=== PATIENT | male | born 1990 | race American Indian/Alaskan Native ===

== ENCOUNTER 2017-03-25 11:59 | Emergency (ER) | payer OTHER ==
[2017-03-25 12:07] VITALS: BP 137/88
--- NOTE | 2017-03-25 12:23 | Emergency Department Report ---
ED Extremity Problem HPI - General Chief complaint: Extremity Injury, Lower Stated complaint: RT LEG INJURY Time Seen by Provider: 03/25/17 12:20 Source: patient Mode of arrival: Wheelchair Limitations: No Limitations - History of Present Illness Initial comments: PT c/o R knee injury. PT states he was unloading drinks and the drinks and the cooler fell on his R knee. PT states this happened at 0800 and he thought he would be okay. PT states he was given the day off and he went to his dad's house and elevated his leg. PT states when he tried to get up, he could not bend his knee or ambulate. Pt denies other injuries MD Complaint: joint swelling, joint paint -: hour(s) Time: 08:00 (time of injury ) Location: right, knee History of Same: No Severity scale (0 -10): 10 Quality: sharp, constant Consistency: constant Improves with: nothing Worsens with: weight bearing, walking, palpation Associated Symptoms: denies other symptoms - Related Data Previous Rx's Medication Instructions Recorded Last Taken Type Acetaminophen/Codeine [Tylenol #3] 1 tab PO Q6H PRN #12 tab 03/25/17 Unknown Rx Ibuprofen [Motrin] 600 mg PO Q8H PRN #15 tablet 03/25/17 Unknown Rx Allergies Allergy/AdvReac Type Severity Reaction Status Date / Time seafood Allergy Swelling Uncoded 03/25/17 12:02 ED Review of Systems ROS: Stated complaint: RT LEG INJURY Other details as noted in HPI Comment: All other systems reviewed and negative Constitutional: denies: fever Cardiovascular: denies: chest pain Musculoskeletal: as per HPI Skin: other (abrasion to R knee ) Neurological: abnormal gait (due to R knee pain ) ED Past Medical Hx - Past Medical History Previous Medical History?: No - Surgical History Past Surgical History?: No - Social History Smoking Status: Never Smoker Substance Use Type: None - Medications Home Medications: Home Medications Medication Instructions Recorded Confirmed Last Taken Type Acetaminophen/Codeine [Tylenol #3] 1 tab PO Q6H PRN #12 tab 03/25/17 Unknown Rx Ibuprofen [Motrin] 600 mg PO Q8H PRN #15 tablet 03/25/17 Unknown Rx ED Physical Exam - General Limitations: No Limitations General appearance: alert, in no apparent distress - Head Head exam: Present: atraumatic, normocephalic, normal inspection - Eye Eye exam: Present: normal appearance. Absent: conjunctival injection - ENT ENT exam: Present: normal exam, mucous membranes moist, normal external ear exam - Neck Neck exam: Present: normal inspection, full ROM - Respiratory Respiratory exam: Present: normal lung sounds bilaterally. Absent: respiratory distress - Cardiovascular Cardiovascular Exam: Present: regular rate, normal rhythm - Extremities Exam Extremities exam: Present: tenderness, joint swelling (R knee ). Absent: normal inspection, full ROM, calf tenderness - Expanded Lower Extremity Exam Left Hip exam: Present: full ROM Upper Leg exam: Present: normal inspection, full ROM Knee exam: Present: normal inspection, full ROM Lower Leg exam: Present: normal inspection, full ROM Gait: Positive: observed and limited by pain (of r knee ) Right Upper Leg exam: Present: normal inspection. Absent: tenderness Knee exam: Present: tenderness, swelling, abrasion (lateral knee ). Absent: normal inspection, full ROM, laceration, ecchymosis, deformity, crepidus, full knee extension Lower Leg exam: Present: normal inspection, full ROM. Absent: tenderness, swelling Ankle exam: Present: normal inspection, full ROM. Absent: tenderness Foot/Toe exam: Present: normal inspection, full ROM. Absent: tenderness Neuro vascular tendon exam: Present: no vascular compromise. Absent: pulse deficit Gait: Positive: unable to bear weight (on RLE ) - Back Exam Back exam: Present: normal inspection, full ROM - Neurological Exam Neurological exam: Present: alert, oriented X3 - Psychiatric Psychiatric exam: Present: normal affect, normal mood - Skin Skin exam: Present: warm, dry, normal color ED Course Vital Signs 03/25/17 12:03 Temperature 97.9 F Pulse Rate 98 H Respiratory 18 Rate Blood Pressure 137/88 O2 Sat by Pulse 99 Oximetry - Reevaluation(s) Reevaluation #1: 03/25/17 12:22 PT in XR Reevaluation #2: 03/25/17 13:00 PT aware of plan of care. PT has no questions at this time. Reevaluation #3: 03/25/17 14:11 PT states pain has decreased. PT aware of XR results and plan of care. PT has no questions at this time. - Pulse Oximetry Interpretation Digit-Finger Initial Pulse Oximetry Readin Actions Taken: none ED Medical Decision Making - Radiology Data Radiology results: report reviewed XR tib/fib- nap XR knee - no fx, effusion - Differential Diagnosis fracture, contusion, crush injury Critical Care Time: No Critical care attestation.: If time is entered above; I have spent that time in minutes in the direct care of this critically ill patient, excluding procedure time. ED Disposition Clinical Impression: Effusion, right knee, Need for Tdap vaccination Right knee injury Qualifiers: Encounter type: initial encounter Qualified Code(s): S89.91XA - Unspecified injury of right lower leg, initial encounter Abrasion, right knee, initial encounter Qualifiers: Encounter type: initial encounter Qualified Code(s): S80.211A - Abrasion, right knee, initial encounter Disposition: TO HOME OR SELFCARE Is pt being admited?: No Does the pt Need Aspirin: No Condition: Stable Instructions: Knee Sprain (ED), Crutch Instructions (ED), Knee Effusion (ED), RICE Therapy (ED) Additional Instructions: No driving or alcohol after taking Tylenol #3 for pain Call [facility] today to set up your follow up RICE Prescriptions: Acetaminophen/Codeine [Tylenol #3] 1 tab PO Q6H PRN #12 tab PRN Reason: Pain , Severe (7-10) Ibuprofen [Motrin] 600 mg PO Q8H PRN #15 tablet PRN Reason: Pain Referrals: PRIMARY CARE, [Primary Care Provider] - 3-5 Days CONNIE RODARTE MD [Staff Physician] - 3-5 Days Forms: Work/School Release Form(ED) Time of Disposition: 14:13
[2017-03-25] MEDS ORDERED: BOOSTRIX IM ONE (12:55)
[2017-03-25] MEDS ORDERED: TORADOL IM ONE (12:55)
[2017-03-25] MEDS ORDERED: NORCO 5/325 PO ONE (12:55)
--- NOTE | 2017-03-25 13:37 | XRay Report ---
RIGHT KNEE, 2 views: History: Injury, right knee pain. The bony architecture is intact without evidence of fracture or dislocation. There is suggestion of a medium joint effusion on the lateral image. IMPRESSION: Joint effusion. No acute bony injury is detected.
--- NOTE | 2017-03-25 13:38 | XRay Report ---
RIGHT TIBIA/FIBULA: History: Injury, right leg pain AP and lateral views of the right tibia/fibula demonstrate normal mineralization and contours for this patient's age. No destructive changes are noted and the adjacent soft tissues are normal. IMPRESSION: Unremarkable right tibia/fibula.
== END 2017-03-25 14:23 | disposition home or self-care (01) ==
LOC: ED 11:59
DX: S89.91XA Unspecified injury of right lower leg, initial encounter (principal); S80.211A Abrasion, right knee, initial encounter; M25.461 Effusion, right knee; Z91.013 Allergy to seafood; X58.XXXA Exposure to other specified factors, initial encounter; Y93.89 Activity, other specified; Y99.9 Unspecified external cause status; Y92.89 Other specified places as the place of occurrence of the external cause
CPT/HCPCS: 73560; 73590; 90471; 90715; 96372; 99284; J1885

== ENCOUNTER 2021-03-15 21:04 | Emergency (ER) | payer SELFPAY ==
[2021-03-15] MEDS ORDERED: diphenhydrAMINE 25 MG CAP PO ONE (21:36)
[2021-03-15] MEDS ORDERED: ALBUTEROL 2.5 MG/3 ML NEBU IH ONE (21:36)
[2021-03-15] MEDS ORDERED: FAMOTIDINE 20 MG TAB PO ONE (21:36)
[2021-03-15] MEDS ORDERED: IPRATROPIUM 0.02% NEBU 2.5 ML IH ONE (21:36)
[2021-03-15] MEDS ORDERED: methylPREDNISolone Sod Succinate 125 MG/2 ML INJ IM ONE (21:36)
--- NOTE | 2021-03-15 21:43 | Emergency Department Report ---
ED Shortness of Breath HPI - General Stated Complaint: ALLERGIC REACTION,AGUSTÍN Source: patient Mode of arrival: Ambulatory Limitations: No Limitations - History of Present Illness Initial Comments: Patient is a 30-year-old -[place] male with a history of chronic tobacco abuse and asthma who presents to the ED with complaint of acute onset persistent shortness of breath, chest tightness and wheezing after he consumed seafood which he has had previous allergy to. Patient states that he was unaware that the food that he had eaten contained seafood and thereafter he started having shortness of breath and chest tightness. Patient denies itching, rashes, swollen lips or tongue, swollen throat, dizziness, dysphagia, dysphonia, abdominal pain, nausea and vomiting, fever and chills or diarrhea, nasal and sinus congestion or facial swelling. MD Complaint: shortness of breath, cough, "asthma attack", anxiety -: Sudden, hour(s) (1) Radiation: other (chest) Severity: severe Pain Scale: 7 Quality: other (chest tightness) Consistency: constant Improves With: nothing Worsens With: nothing Known History Of: asthma, other (suspected allergic reaction to seafood) Context: allergen exposure (seafood), anxiety Associated Symptoms: cough Treatments Prior to Arrival: none - Related Data Home Oxygen Therapy: No Previous Rx's Medication Instructions Recorded Last Taken Type Acetaminophen/Codeine [Tylenol #3] 1 tab PO Q6H PRN #12 tab 03/25/17 Unknown Rx Ibuprofen [Motrin] 600 mg PO Q8H PRN #15 tablet 03/25/17 Unknown Rx Albuterol Sulfate [Proventil Hfa] 1 - 2 puff IH Q6H PRN #1 hfa.aer.ad 03/16/21 Unknown Rx Famotidine [Pepcid] 20 mg PO BID #30 tablet 03/16/21 Unknown Rx diphenhydrAMINE [Benadryl CAP] 25 mg PO Q6HR PRN #30 capsule 03/16/21 Unknown Rx methylPREDNISolone [Medrol 4MG 4 mg PO DAILY #21 tab.ds.pk 03/16/21 Unknown Rx DOSEPAK (21 tabs)] Allergies Allergy/AdvReac Type Severity Reaction Status Date / Time seafood Allergy Swelling Uncoded 03/25/17 12:02 ED Review of Systems ROS: Stated complaint: ALLERGIC REACTION,AGUSTÍN Other details as noted in HPI Constitutional: denies: chills, fever Eyes: denies: eye pain, eye discharge, vision change ENT: denies: ear pain, throat pain Respiratory: cough, shortness of breath, wheezing Cardiovascular: chest pain (Chest tightness). denies: palpitations Endocrine: no symptoms reported Gastrointestinal: denies: abdominal pain, nausea, diarrhea Genitourinary: denies: urgency, dysuria Musculoskeletal: denies: back pain, joint swelling, arthralgia Skin: denies: rash, lesions Neurological: denies: headache, weakness, paresthesias Psychiatric: anxiety. denies: depression Hematological/Lymphatic: denies: easy bleeding, easy bruising ED Past Medical Hx - Past Medical History Previous Medical History?: Yes Hx Asthma: Yes - Social History Smoking Status: Never Smoker Substance Use Type: None - Medications Home Medications: Home Medications Medication Instructions Recorded Confirmed Last Taken Type Acetaminophen/Codeine [Tylenol #3] 1 tab PO Q6H PRN #12 tab 03/25/17 Unknown Rx Ibuprofen [Motrin] 600 mg PO Q8H PRN #15 tablet 03/25/17 Unknown Rx Albuterol Sulfate [Proventil Hfa] 1 - 2 puff IH Q6H PRN #1 hfa.aer.ad 03/16/21 Unknown Rx Famotidine [Pepcid] 20 mg PO BID #30 tablet 03/16/21 Unknown Rx diphenhydrAMINE [Benadryl CAP] 25 mg PO Q6HR PRN #30 capsule 03/16/21 Unknown Rx methylPREDNISolone [Medrol 4MG 4 mg PO DAILY #21 tab.ds.pk 03/16/21 Unknown Rx DOSEPAK (21 tabs)] ED Physical Exam - General General appearance: alert, in no apparent distress - Head Head exam: Present: atraumatic, normocephalic, normal inspection - Eye Eye exam: Present: normal appearance, PERRL, EOMI Pupils: Present: normal accommodation - ENT ENT exam: Present: normal exam, normal orophraynx, mucous membranes moist, TM's normal bilaterally, normal external ear exam - Neck Neck exam: Present: normal inspection, full ROM - Respiratory Respiratory exam: Present: wheezes (Diffuse coarse wheezes throughout). Absent: respiratory distress, rales, rhonchi, chest wall tenderness, accessory muscle use, decreased breath sounds, prolonged expiratory - Cardiovascular Cardiovascular Exam: Present: regular rate, normal rhythm, normal heart sounds. Absent: systolic murmur, diastolic murmur, rubs, gallop - GI/Abdominal GI/Abdominal exam: Present: soft, normal bowel sounds. Absent: tenderness, guarding, rebound, hyperactive bowel sounds, hypoactive bowel sounds, organomegaly - Extremities Exam Extremities exam: Present: normal inspection, full ROM, normal capillary refill - Back Exam Back exam: Present: normal inspection, full ROM. Absent: tenderness, CVA tenderness (R), CVA tenderness (L), muscle spasm, paraspinal tenderness, vertebral tenderness - Neurological Exam Neurological exam: Present: alert, oriented X3, CN II-XII intact, normal gait, reflexes normal - Psychiatric Psychiatric exam: Present: normal affect, normal mood, anxious - Skin Skin exam: Present: warm, dry, intact, normal color. Absent: rash ED Course Vital Signs 03/15/21 03/15/21 03/15/21 21:33 22:15 22:47 Temperature 98.4 F Pulse Rate 66 68 Pulse Rate [ 69 Bilateral Throughout] Respiratory 16 Rate Respiratory 18 Rate [Bilateral Throughout] O2 Sat by Pulse 99 100 Oximetry ED Medical Decision Making - Radiology Data Radiology results: report reviewed, image reviewed [facility] [address] [place] [address] XRay Report Signed Patient: PAMELLA KENNEDY MR#: [id number] 63 : 1990 Acct:[id number] Age/Sex: 30 / M ADM Date: 03/15/21 Loc: ED Attending Dr: Ordering Physician: CHAY RAI Date of Service: 03/15/21 Procedure(s): XR chest 1V ap Accession Number(s): [id number] cc: CHAY RAI Fluoro Time In Minutes: CHEST 1 VIEW INDICATION: dyspnea, wheezing COMPARISON: None FINDINGS: SUPPORT DEVICES: None. HEART / MEDIASTINUM: No significant abnormality. LUNGS / PLEURA: No significant pulmonary or pleural abnormality. No pneumothorax. ADDITIONAL FINDINGS: IMPRESSION: 1. No acute cardiopulmonary disease Signer Name: Harvinder Pineda MD Signed: 03/15/2021 10:03 PM Workstation Name: [id number] Transcribed By: WG Dictated By: Harvinder Pineda MD Electronically Authenticated By: Harvinder Pineda MD Signed Date/Time: 03/15/212202 DD/ 02 TD/TT: Print - Medical Decision Making This is a 30-year-old -[place] male with a history of chronic tobacco abuse and asthma who presents to the ED with complaint of acute onset persistent shortness of breath, chest tightness and wheezing after he consumed seafood which he has had previous allergy to. Patient states that he was unaware that the food that he had eaten contained seafood and thereafter he started having shortness of breath and chest tightness. In the ED, patient is alert and oriented x3 and is not in any distress but anxious in triage. Patient was treated with DuoNeb treatment, steroids, also treated for suspected acute allergic reaction with Benadryl and Pepcid. On reevaluation, patient wheezing resolved, patient is hemodynamically stable. Chest x-ray shows no acute cardiopulmonary abnormalities or pneumonitis. Patient was therefore discharged home on medications and advised to follow-up with his primary care physician in 5 to 7 days for reevaluation. Patient was advised return to the ED immediately if symptoms get worse. - Differential Diagnosis Allergic reaction; asthma attack; bronchitis; anaphylaxis Critical care attestation.: If time is entered above; I have spent that time in minutes in the direct care of this critically ill patient, excluding procedure time. ED Disposition Clinical Impression: Shortness of breath, Acute bronchitis with asthma with acute exacerbation Acute allergic reaction Qualifiers: Encounter type: initial encounter Qualified Code(s): T78.40XA - Allergy, unspecified, initial encounter Disposition: - TO HOME OR SELFCARE Is pt being admited?: No Does the pt Need Aspirin: No Condition: Stable Instructions: Shortness of Breath, Adult, [id number], Allergies, Adult, [id number], Acute Bronchitis, Adult, [id number], Acute Bronchitis (ED) Additional Instructions: Chest x-ray showed no acute cardiopulmonary abnormalities or pneumonitis. Therefore take medications with food, drink plenty of fluids and follow-up with your primary care physician in 5 to 7 days for reevaluation. Return to the ED immediately if symptoms get worse. Prescriptions: diphenhydrAMINE [Benadryl CAP] 25 mg PO Q6HR PRN #30 capsule PRN Reason: Allergic Reaction methylPREDNISolone [Medrol 4MG DOSEPAK (21 tabs)] 4 mg PO DAILY #21 tab.ds.pk Famotidine [Pepcid] 20 mg PO BID #30 tablet Albuterol Sulfate [Proventil Hfa] 1 - 2 puff IH Q6H PRN #1 hfa.aer.ad PRN Reason: Wheezing Referrals: PRIMARY CARE, [Primary Care Provider] - 3-5 Days [facility] [Provider Group] - 3-5 Days Forms: Work/School Release Form(ED) Time of Disposition: 01:11 Print Language: SERBIAN
--- NOTE | 2021-03-15 22:07 | XRay Report ---
CHEST 1 VIEW INDICATION: dyspnea, wheezing COMPARISON: None FINDINGS: SUPPORT DEVICES: None. HEART / MEDIASTINUM: No significant abnormality. LUNGS / PLEURA: No significant pulmonary or pleural abnormality. No pneumothorax. ADDITIONAL FINDINGS: IMPRESSION: 1. No acute cardiopulmonary disease Signer Name: Harvinder Pineda MD Signed: 03/15/2021 10:03 PM Workstation Name: [id number]
[2021-03-16 01:20] VITALS: BP 126/78
== END 2021-03-15 23:00 | disposition home or self-care (01) ==
LOC: ED 21:04
DX: T78.40XA Allergy, unspecified, initial encounter (principal); J45.901 Unspecified asthma with (acute) exacerbation; Z79.899 Other long term (current) drug therapy; Z91.013 Allergy to seafood; X58.XXXA Exposure to other specified factors, initial encounter
CPT/HCPCS: 71045; 94640; 96372; 99283; J2930; 94644